=== PATIENT | female | born 1980 | race African-American/Black ===

== ENCOUNTER 2016-10-18 11:59 | Emergency (ER) | payer OTHER ==
--- NOTE | 2016-10-18 12:08 | ED.REPORT ---
HPI-Medical Clearance Date of Service Oct 18, 2016 ED Provider: Edgar Physician for [facility]. 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 Was rinsed immediately. Comes to the emergency room for follow-up and definitive care. Nursing Notes Stated Complaint: WORK EXPOSURE General Time Seen by Provider: 12:03 Chief Complaint : Other (occupational blood exposure) Hx Obtained From: Patient Arrived By: Walk-in Onset Occurred: Just prior to arrival Past Medical History Past Medical History negative Past Surgical History ACL bilateral adnoids Review of Systems Review of Systems Note: Otherwise normal and noncontributory Basic Review of Systems Eyes: Vision NL, No discharge Physical Exam Physical Exam Notes: Alert and appropriate. No obvious trauma, no respiratory distress. Eyes show normal sclera bilaterally Initial Vital Signs unremarkable Initial VS: Reviewed Re-Eval/Medical Decision Med Decision/Clinical Course Phone call to the PEP hotline [phone] Given negative HIV and hepatitis C status for the patient involved recommendation is to do no additional blood work. Patient's medical history states that HIV and hepatitis is negative exposure panel 7 was redrawn today to confirm. The patient Does not have significant new HIV exposure risk factors Discharge & Departure Impression: Primary Impression: Exposure to blood-borne pathogen Disposition: Home Additional Instructions: I think you got jose today with a patient who is hepatitis and HIV negative. Exposure panel has been drawn. Please schedule an appointment with the employee health nurse for postexposure counseling and test results on this patient by calling [phone] At this point there is no additional recommendation for intervention Careful with those residents, they are going to kill you one way or another:) Referrals: NOPCP (PCP) Lana Hernández MD Oct 18, 2016 12:08
== END 2016-10-18 13:07 | disposition home or self-care (01) ==
LOC: SED 11:59
DX: Z77.21 Contact with and (suspected) exposure to potentially hazardous body fluids (principal); Y93.89 Activity, other specified; Y92.59 Other trade areas as the place of occurrence of the external cause; Y99.0 Civilian activity done for income or pay